=== PATIENT | female | born 1995 | race American Indian/Alaskan Native ===

== ENCOUNTER 2018-04-07 07:45 | Inpatient (IN) | payer MEDICAID ==
[2018-04-07] MEDS ORDERED: LACTATED RINGERS 1,000 ML ONE (08:04)
[2018-04-07] MEDS ORDERED: AMPICILLIN/NS 2 GM/100 ML 2 GM/100 ML BAG IV ONE ×2 (08:05→08:06)
[2018-04-07] MEDS ORDERED: SUBLIMAZE ONE (08:05)
[2018-04-07] MEDS ORDERED: PITOCin/NS 20 UNIT/1000ML DRIP 20,000 MILLIUNITS/1,000 ML BAG IV ONE (08:05)
[2018-04-07] MEDS ORDERED: XYLOCAINE 2% INFILTRATI ONE (08:06)
[2018-04-07] MEDS ORDERED: SUBLIMAZE IV PRN (08:06)
[2018-04-07] MEDS ORDERED: BRETHINE SUB-Q PRN (08:06)
[2018-04-07] MEDS ORDERED: BRETHINE IVP PRN (08:06)
[2018-04-07] MEDS ORDERED: MINERAL OIL PO PRN (08:06)
[2018-04-07 08:31] LABS: Hematocrit 33.6 % (30.3-42.9); Hemoglobin 10.9 gm/dl (10.1-14.3); Mean Corpuscular HGB Conc 33 % (30-34); Mean Corpuscular Volume 85 fl (79-97); Platelet Count 197 K/mm3 (140-440); Red Blood Count 3.94 M/mm3 (3.65-5.03); Red Cell Distribution Width 13.8 % (13.2-15.2)
[2018-04-07] MEDS ORDERED: PITOCin/NS 30 UNIT/500ML 30 UNITS/500 ML BAG IV SCH (09:00)
[2018-04-07] MEDS ORDERED: LACTATED RINGERS 1,000 ML IV SCH (09:00)
[2018-04-07] MEDS ORDERED: PITOCin/NS 20 UNIT/1000ML DRIP 20 UNITS/1,000 ML BAG IV SCH (09:00)
--- NOTE | 2018-04-07 09:00 | History and Physical Report ---
History of Present Illness Date of examination: 04/07/18 Date of admission: 04/07/18 07:46 Chief complaint: contractions History of present illness: 23 yo at 39+2 weeks came in c/o contractions. She was noted to be 8 cm. She is patient of [facility] and no records availble for review. Per patient no medical problems Past History Past Medical History: no pertinent history Past Surgical History: no surgical history Family/Genetic History: none Social history: single. denies: smoking, alcohol abuse, prescription drug abuse - Obstetrical History Expected Date of Delivery: 04/12/18 Actual Gestation: 39 Week(s) 2 Day(s) : 3 Para: 1 Hx # Term Pregnancies: 1 Number of Pregnancies: 0 Spontaneous Abortions: 1 Induced : 0 Number of Living Children: 1 Medications and Allergies Allergies Allergy/AdvReac Type Severity Reaction Status Date / Time No Known Allergies Allergy Unverified 09/04/16 07:54 Home Medications Medication Instructions Recorded Confirmed Last Taken Type Ferrous Fumarate/Docusate(Nf) 1 each PO BID #60 tablet.er 09/05/16 Unknown Rx [Laurel-Sequels 106/50 mg tab] Ibuprofen [Motrin] 600 mg PO Q8H PRN #30 tablet 09/05/16 Unknown Rx Active Meds: Active Medications Ephedrine Sulfate (Ephedrine Sulfate) 10 mg IV Q2M PRN PRN Reason: Hypotension Fentanyl (Sublimaze) 100 mcg IV Q2H PRN PRN Reason: Labor Pain Ampicillin Sodium (Polycillin/Ns 2 Gm/100 Ml) 2 gm in 100 mls @ 100 mls/hr IV ONCE ONE; Protocol Stop: 04/07/18 09:05 Lactated Ringer's (Lactated Ringers) 1,000 mls @ 125 mls/hr IV DIRECT REHANA Oxytocin/Sodium Chloride (Pitocin/Ns 20 Unit/1000ml Drip) 20 units in 1,000 mls @ 125 mls/hr IV DIRECT REHANA Oxytocin/Sodium Chloride (Pitocin/Ns 30 Unit/500ml) 30 units in 500 mls @ 1 mls/hr IV TITR REHANA; Protocol Mineral Oil (Mineral Oil) 30 ml PO QHS PRN PRN Reason: Constipation Terbutaline Sulfate (Brethine) 0.25 mg SUB-Q ONCE PRN PRN Reason: Hyperstimulation/Hypertonicity Terbutaline Sulfate (Brethine) 0.25 mg IVP ONCE PRN PRN Reason: Hyperstimulation/Hypertonicity Review of Systems Genitourinary: contractions - Vital Signs Vital signs: Vital Signs Pulse Pulse Ox 86 97 04/07/18 08:15 04/07/18 08:15 Temp Pulse Resp BP Pulse Ox 108 H 92 04/07/18 08:33 04/07/18 08:33 - Physical Exam Breasts: Positive: normal Cardiovascular: Regular rate, Normal S1 Lungs: Positive: Clear to auscultation, Normal air movement Abdomen: Positive: normal appearance, soft, normal bowel sounds. Negative: distention, tenderness, guarding Genitourinary (Female): Positive: normal external genitalia, normal perenium Vagina: Positive: normal moisture Uterus: Positive: normal size, normal contour Anus/Rectum: Positive: normal perianal skin Extremities: Positive: normal Deep Tendon Reflex Grade: Normal +2 - Obstetrical FHR: category 1 Cervical Dilatation: 8 Cervical Effacement Percentage: 90 station: -2 Uterine Contraction Pattern: Regular Uterine Tone Measurement Phase: Contraction Uterine Contraction Intensity: Moderate Results Result Diagrams: 04/07/18 08:05 Abnormal lab results 04/07/18 Range/Units 08:05 WBC 11.2 H (4.5-11.0) K/mm3 All other labs normal. Assessment and Plan A/P IUP 39+2 weeks Active labor records unavailable amp for unknown GBS expect vaginal delivery
--- NOTE | 2018-04-07 09:05 | Procedure Note ---
OB Delivery Note - Delivery Date of Delivery: 04/07/18 Surgeon: KOLTON ESTRADA Estimated blood loss: 300cc - Vaginal Delivery presentation: vertex Delivery position: OA Intrapartum events: meconium Delivery induction: none Delivery augmentation: rupture of membranes Delivery monitor: external FHT, external uterine Route of delivery: Delivery placenta: spontaneous Delivery cord: nuchal cord, 3 umbilical vessels Episiotomy: none Delivery laceration: none Anesthesia: none Delivery comments: Patient was noted to be c/c/ e at 830 and noted to start pushing a viable male infant. The head delivered after reducing a nuchal cord and shoulders delivered easily at 833a. The bulb suction used to suction oropharyns and nasaopharnx. The cord was clamped and cut and given to awaiting nurse. The placenta delivered intact with 3 vessel cord at 840a. Apgars 8 and 9. Weight of the baby 7 pounds 8 oz . EBL 300cc. Patient tolerated procedure well. Baby and mom bonding skin to skin. No lacerations noted - Infant A at 1 minute: 8 at 5 minutes: 9 Gender: Male (7 pounds 8 oz)
[2018-04-07] MEDS ORDERED: PERCOCET 5/325 PO PRN (09:06)
[2018-04-07] MEDS ORDERED: PHENERGAN PO PRN (09:06)
[2018-04-07] MEDS ORDERED: TUCKS PAD TP PRN (09:06)
[2018-04-07] MEDS ORDERED: PHENERGAN PR PRN (09:06)
[2018-04-07] MEDS ORDERED: NORCO 5/325 PO PRN (09:06)
[2018-04-07] MEDS ORDERED: BENADRYL PO PRN (09:06)
[2018-04-07] MEDS ORDERED: TYLENOL PO PRN (09:06)
[2018-04-07] MEDS ORDERED: TORADOL IV PRN (09:06)
[2018-04-07] MEDS ORDERED: DULCOLAX PR PRN (09:06)
[2018-04-07] MEDS ORDERED: ZOFRAN IV PRN (09:06)
[2018-04-07] MEDS ORDERED: LANSINOH TP PRN (09:06)
[2018-04-07] MEDS ORDERED: MILK OF MAGNESIA PO PRN (09:06)
[2018-04-07] MEDS ORDERED: SODIUM CHLORIDE FLUSH SYRINGE 10 ML IV NR (10:00)
[2018-04-07] MEDS: IBUPROFEN PO SCH ×2 (17:10→22:33)
[2018-04-07 20:38] LABS: Hemoglobin 10.2 gm/dl (10.1-14.3)
[2018-04-07] MEDS: COLACE PO SCH ×2 (22:30→22:31)
[2018-04-07] MEDS: FEOSOL PO SCH (22:31)
[2018-04-07] MEDS: SENOKOT S PO SCH (22:33)
[2018-04-08] MEDS: IBUPROFEN PO SCH ×2 (06:14→22:09)
[2018-04-08] MEDS ORDERED: BOOSTRIX IM ONE (09:06)
[2018-04-08] MEDS ORDERED: M-M-R II VACCINE SUB-Q ONE (09:06)
[2018-04-08] MEDS: PRENATAL VITAMIN PO SCH (09:12)
[2018-04-08] MEDS: COLACE PO SCH ×2 (09:12→22:13)
[2018-04-08] MEDS: FEOSOL PO SCH ×2 (09:12→22:09)
--- NOTE | 2018-04-08 09:47 | Progress Note ---
Assessment and Plan PPD 1 s/p . Doing well. Plan for discharge on today Subjective - Subjective Date of service: 04/08/18 Patient reports: appetite normal, voiding normally, pain well controlled, flatus, ambulating normally [facility]: doing well Objective - Vital Signs Latest vital signs: Vital Signs Temp Pulse Resp BP BP Pulse Ox 04/08/18 07:13 97.9 F 76 18 99/54 04/07/18 23:50 98.2 F 75 20 114/62 100 04/07/18 16:41 98.6 F 76 18 114/62 04/07/18 12:25 98.5 F 79 18 108/64 04/07/18 10:30 75 20 111/58 04/07/18 09:49 70 122/77 Intake and Output 04/07/18 04/08/18 04/08/18 22:59 06:59 14:59 Intake Total 600 480 120 Output Total 1 2 Balance 599 478 120 Intake: Oral 600 480 120 Output: Urine 1 2 Void 1 2 Other: Total, Intake Amount 240 240 120 Total, Output Amount 1 1 - Exam Breasts: Present: deferred Cardiovascular: Present: Regular rate, Normal S1, Normal S2 Lungs: Present: Clear to auscultation, Normal air movement Abdomen: Present: normal appearance, soft, normal bowel sounds Vulva: both: normal Uterus: Present: normal, firm Extremities: Present: normal
--- NOTE | 2018-04-08 09:48 | Discharge Summary ---
Providers - Providers Date of Admission: 04/07/18 07:46 Date of discharge: 04/08/18 Attending physician: SONI ARANA Primary care physician: SONI ARANA Hospitalization Reason for admission: active labor Delivery: Episiotomy: none Laceration: none Other procedures: none complications: none Discharge diagnosis: IUP at term delivered baby: male Hospital course: unremarkable Condition at discharge: Good Disposition: DC-01 TO HOME OR SELFCARE Plan - Discharge Medications Prescriptions: Ferrous Sulfate 325 mg PO BID #60 tablet. Ibuprofen [Motrin] 600 mg PO Q8H PRN #30 tablet PRN Reason: Pain oxyCODONE /ACETAMINOPHEN [Percocet 5/325] 1 tab PO Q6HR PRN #20 tablet PRN Reason: Pain - Provider Discharge Summary Activity: routine, no sex for 6 weeks, no heavy lifting 4 weeks, no strenuous exercise Diet: routine Instructions: routine Additional instructions: [] Smoking cessation referral if applicable(refer to patient education folder for contact #) [] Refer to [facility] Book[facility] Call your doctor immediately for: * Fever > 100.5 * Heavy vaginal bleeding ( >1 pad per hour) * Severe persistent headache * Shortness of breath * Reddened, hot, painful area to leg or breast * Drainage or odor from incision. * Keep incision clean and dry at all times and follow doctor's instructions regarding bathing/showering - Follow up plan Follow up: SONI ARANA MD [Primary Care Provider] - 6 Weeks
[2018-04-08] MEDS: SENOKOT S PO SCH (22:12)
[2018-04-09] MEDS: IBUPROFEN PO SCH ×2 (05:14→09:56)
[2018-04-09] MEDS: COLACE PO SCH (09:56)
[2018-04-09] MEDS: PRENATAL VITAMIN PO SCH (09:56)
[2018-04-09] MEDS: SENOKOT S PO SCH (09:56)
[2018-04-09] MEDS: FEOSOL PO SCH (09:56)
[2018-04-09 11:38] VITALS: BP 125/74
== END 2018-04-09 11:40 | disposition home or self-care (01) | DRG 775 ==
LOC: TRG 07:45 → LD 07:46 → TRG 07:46 → OB 11:05
PROVIDERS: ADMIT Obstetrics & Gynecology; ATTEND Obstetrics & Gynecology
PROC: 10E0XZZ Delivery of Products of Conception, External Approach (ICD-10-PCS; principal; 2018-04-07)
PROC: 3E0234Z Introduction of Serum, Toxoid and Vaccine into Muscle, Percutaneous Approach (ICD-10-PCS; 2018-04-08)
DX: O77.0 Labor and delivery complicated by meconium in amniotic fluid (principal); Z3A.39 39 weeks gestation of pregnancy; Z37.0 Single live birth; O69.81X0 Labor and delivery complicated by cord around neck, without compression, not applicable or unspecified; Z23 Encounter for immunization
CPT/HCPCS: 36415; 85014; 85018; 85027; 86592; 86850; 86900; 86901; G0378; J0290; J2590; J3010; J7120

== ENCOUNTER 2020-03-03 18:18 | Outpatient (CLI) | payer MEDICAID ==
[2020-03-03 18:48] VITALS: BP 121/69
== END 2020-03-03 19:55 | disposition home or self-care (01) ==
LOC: TRG 18:18 → APU 18:19 → TRG 19:55
PROVIDERS: ATTEND Obstetrics & Gynecology
DX: O26.893 Other specified pregnancy related conditions, third trimester (principal); R10.9 Unspecified abdominal pain; Z3A.40 40 weeks gestation of pregnancy
CPT/HCPCS: 59025